=== PATIENT | female | born 1955 | race Two or more races ===

== ENCOUNTER 2018-11-02 07:13 | Outpatient (CLI) | payer OTHER | END 2018-11-02 09:17 | disposition home or self-care (01) | LOC: SONOGRAMA 07:13 | DX: E04.1 Nontoxic single thyroid nodule (principal) ==

== ENCOUNTER 2021-10-23 09:03 | Outpatient (CLI) | payer OTHER | END 2021-10-23 09:07 | disposition home or self-care (01) | LOC: RX STUDY 09:03 | DX: K57.90 Diverticulosis of intestine, part unspecified, without perforation or abscess without bleeding (principal); R13.19 Other dysphagia ==

== ENCOUNTER 2022-01-29 08:00 | Outpatient (CLI) | payer OTHER | END 2022-01-29 08:30 | disposition home or self-care (01) | LOC: PPH VACUNA 08:00 | PROVIDERS: ATTEND Emergency Medicine Pediatric Emergency Medicine | DX: Z23 Encounter for immunization (principal) ==